=== PATIENT | male | born 1975 ===

== ENCOUNTER 2022-05-06 01:00 | Emergency (ER) | payer SELFPAY ==
--- NOTE | 2022-05-06 04:19 | Emergency Department Report ---
ED Psych HPI - General Chief Complaint: Psych Stated Complaint: MENTAL HEALTH Time Seen by Provider: 05/06/22 04:11 Source: police Mode of arrival: Ambulatory - History of Present Illness Initial Comments: Patient is a 47-year-old male presenting to ED with complaint of suicidal and homicidal ideation. - Related Data Home Medications Medication Instructions Recorded Confirmed Last Taken OLANzapine [ZyPREXA] 10 mg PO QPM 05/06/22 05/06/22 Unknown Omeprazole Magnesium [PriLOSEC Otc] 20 mg PO QDAY 05/06/22 05/06/22 Unknown Venlafaxine [Effexor] 75 mg PO QAM 05/06/22 05/06/22 Unknown lisinopriL [Lisinopril] 20 mg PO QDAY 05/06/22 05/06/22 Unknown Allergies Allergy/AdvReac Type Severity Reaction Status Date / Time No Known Allergies Allergy Unverified 05/06/22 01:19 ED Review of Systems ROS: Stated complaint: MENTAL HEALTH Other details as noted in HPI Constitutional: denies: chills, fever Respiratory: denies: cough, shortness of breath, wheezing Cardiovascular: denies: chest pain, palpitations Gastrointestinal: denies: abdominal pain, nausea, diarrhea Musculoskeletal: denies: back pain, joint swelling, arthralgia Skin: denies: rash, lesions Neurological: denies: headache, weakness, paresthesias Psychiatric: homicidal thoughts, suicidal thoughts. denies: auditory hallucinations, visual hallucinations ED Past Medical Hx - Medications Home Medications: Home Medications Medication Instructions Recorded Confirmed Last Taken Type OLANzapine [ZyPREXA] 10 mg PO QPM 05/06/22 05/06/22 Unknown History Omeprazole Magnesium [PriLOSEC Otc] 20 mg PO QDAY 05/06/22 05/06/22 Unknown History Venlafaxine [Effexor] 75 mg PO QAM 05/06/22 05/06/22 Unknown History lisinopriL [Lisinopril] 20 mg PO QDAY 05/06/22 05/06/22 Unknown History ED Physical Exam - General Limitations: No Limitations General appearance: alert, in no apparent distress - Head Head exam: Present: atraumatic, normocephalic - Respiratory Respiratory exam: Present: normal lung sounds bilaterally. Absent: respiratory distress - Cardiovascular Cardiovascular Exam: Present: regular rate, normal rhythm, normal heart sounds - GI/Abdominal GI/Abdominal exam: Present: soft. Absent: distended, tenderness - Rectal Rectal exam: Present: deferred - Neurological Exam Neurological exam: Present: alert, oriented X3 - Psychiatric Psychiatric exam: Present: homicidal ideation, suicidal ideation - Skin Skin exam: Present: warm, dry, intact, normal color ED Course Vital Signs 05/06/22 05/06/22 05/06/22 01:12 01:22 01:39 Temperature 98.4 F Pulse Rate 121 H Respiratory 16 Rate Blood Pressure 86/61 147/104 [Right] O2 Sat by Pulse 100 96 Oximetry 05/06/22 05:18 Temperature 97.8 F Pulse Rate 82 Respiratory 18 Rate Blood Pressure 126/87 [Right] O2 Sat by Pulse 99 Oximetry Critical care attestation.: If time is entered above; I have spent that time in minutes in the direct care of this critically ill patient, excluding procedure time. ED Disposition Condition: Stable
[2022-05-06 05:50] LABS: Basophils # (Auto) 0.1 K/mm3 (0.0-0.1); Basophils % (Auto) 0.8 % (0.0-1.8); Eosinophils # (Auto) 0.1 K/mm3 (0.0-0.4); Eosinophils % (Auto) 1.5 % (0.0-4.3); Hematocrit 41.5 % (35.5-45.6); Hemoglobin 13.3 gm/dl (11.8-15.2); Lymphocytes # (Auto) 3.2 K/mm3 (1.2-5.4); Lymphocytes % (Auto) 34.9 % (13.4-35.0); Mean Corpuscular HGB Conc 32 % (32-34); Mean Corpuscular Volume 93 fl (84-94); Monocytes # (Auto) 0.7 K/mm3 (0.0-0.8); Monocytes % (Auto) 7.3 % (0.0-7.3); Platelet Count 238 K/mm3 (140-440); Red Blood Count 4.48 M/mm3 (3.65-5.03); Red Cell Distribution Width 13.6 % (13.2-15.2)
[2022-05-06 06:06] LABS: Alanine Aminotransferase 32 units/L (7-56); Albumin 4.4 g/dL (3.9-5); BUN/Creatinine Ratio 9; Blood Urea Nitrogen 7 mg/dL (9-20); Calcium 8.9 mg/dL (8.4-10.2); Hemolysis Index 14
--- NOTE | 2022-05-06 09:53 | Consultation ---
History of Present Illness - Reason for Consult Consult date: 05/06/22 Reason for consult: agitation, SI/HI - History of Present Psychiatric Illness HPI: Patient is a 47-year-old male presenting to ED with complaint of suicidal and homicidal ideation. The patient was seen today. He is in seclusion. He is agitated and visibly upset. He is talking loudly. He is uncooperative. He is delusional. He says "lacy gone get me out of here now." The patient says "I need to talk to my erisa attorney to see why lacy got me here in these handcuffs." I inform the patient that he's not in handcuffs. He removes his hands from behind his back and looks at them. He then places them back behind him and continues to think that he's in handcuffs. The patient says "I'm not talking to no one so you can leave." REVIEW OF SYSTEMS Unable to assess MENTAL STATUS Unable to assess Diagnoses Mood Disorder, Unspecified Treatment Plan 1013 Risperidone 0.5mg po BID Depakote DR 125mg po BID Trazodone 50mg po qhs Medical: per primary Disposition: recommend acute psychiatric treatment Will follow. Thanks Case staffed with Dr. Adkins Medications and Allergies Allergies Allergy/AdvReac Type Severity Reaction Status Date / Time No Known Allergies Allergy Unverified 05/06/22 01:19 Home Medications Medication Instructions Recorded Confirmed Last Taken Type OLANzapine [ZyPREXA] 10 mg PO QPM 05/06/22 05/06/22 Unknown History Omeprazole Magnesium [PriLOSEC Otc] 20 mg PO QDAY 05/06/22 05/06/22 Unknown History Venlafaxine [Effexor] 75 mg PO QAM 05/06/22 05/06/22 Unknown History lisinopriL [Lisinopril] 20 mg PO QDAY 05/06/22 05/06/22 Unknown History Mental Status Exam - Vital signs Last Vital Signs Temp 97.8 F 05/06/22 05:18 Pulse 82 05/06/22 05:18 Resp 18 05/06/22 05:18 BP 126/87 05/06/22 05:18 Pulse Ox 99 05/06/22 05:18 Results Result Diagrams: 05/06/22 05:18 05/06/22 05:18 Abnormal lab results 05/06/22 05/06/22 05/06/22 Range/Units 05:18 05:18 05:18 BUN 7 L (9-20) mg/dL AST 49 H (5-40) units/L Salicylates < 0.3 L (2.8-20.0) mg/dL Acetaminophen 5.0 L (10.0-30.0) ug/mL Plasma/Serum Alcohol (0-0.07) % 05/06/22 Range/Units 05:18 BUN (9-20) mg/dL AST (5-40) units/L Salicylates (2.8-20.0) mg/dL Acetaminophen (10.0-30.0) ug/mL Plasma/Serum Alcohol 0.18 H (0-0.07) % All other labs normal.
[2022-05-06] MEDS: DIVALPROEX DR 125 MG TAB PO SCH ×2 (11:28→21:38)
[2022-05-06] MEDS: risperiDONE 0.25 MG TAB PO SCH ×2 (11:28→21:38)
[2022-05-06 12:03] LABS: Amphetamine Screen,Urine PRESUMPTIVE NEGATIVE; Benzodiazepines Screen,Urine PRESUMPTIVE NEGATIVE; Cannabinoid Screen,Urine PRESUMPTIVE NEGATIVE; Cocaine Screen,Urine PRESUMPTIVE NEGATIVE; Methadone Screen,Urine PRESUMPTIVE NEGATIVE; Opiate Screen,Urine PRESUMPTIVE NEGATIVE
[2022-05-06] MEDS ORDERED: MIDAZOLAM 2 MG/2 ML INJ IM PRN (12:28)
[2022-05-06] MEDS ORDERED: HALOPERIDOL LACTATE 5 MG/1 ML INJ IM PRN (12:28)
[2022-05-06] MEDS ORDERED: DEXTROSE 50% IN WATER (25GM) 50 ML SYRINGE IV PRN (12:29)
--- NOTE | 2022-05-06 12:31 | Event Note ---
Date: 05/06/22 The patient was evaluated in the emergency department for symptoms described in the history of present illness. He/she was evaluated in the context of the global COVID-19 pandemic, which necessitated consideration that the patient might be at risk for infection with the virus that causes COVID-19. Institutional protocols and algorithms that pertain to the evaluation of patients at risk for COVID-19 are in a state of rapid change based on information released by regulatory bodies including the CDC and federal and state organizations. These policies and algorithms were followed during the patient's care in the emergency department. Please note that these policies, procedures and recommendations changed on a rapid basis. Laboratory studies, vital signs, nursing documentation, ER documentation, and psychiatric documentation are reviewed and appreciated. Nursing team reports no acute events this morning or concerns. The patient is awake and ambulating and laying on his side and not in any acute distress The patient was deemed medically suitable for psychiatric disposition and placement during his initial ER evaluation. The patient continues to remain medically suitable for psychiatric placement and disposition. He is currently pending psychiatric placement. The emergency room will follow up on urinalysis and urine drug screen. Please note that these test are not required to exclude an emergent medical condition, and absence of results does not preclude psychiatric disposition Vital Signs 05/06/22 05/06/22 05/06/22 01:12 01:22 01:39 Temperature 98.4 F Pulse Rate 121 H Respiratory 16 Rate Blood Pressure 86/61 147/104 [Right] O2 Sat by Pulse 100 96 Oximetry 05/06/22 05:18 Temperature 97.8 F Pulse Rate 82 Respiratory 18 Rate Blood Pressure 126/87 [Right] O2 Sat by Pulse 99 Oximetry Lab Results 05/06/22 05/06/22 05/06/22 Range/Units 05:18 05:18 05:18 WBC 9.1 (4.5-11.0) K/mm3 RBC 4.48 (3.65-5.03) M/mm3 Hgb 13.3 (11.8-15.2) gm/dl Hct 41.5 (35.5-45.6) % MCV 93 (84-94) fl MCH 30 (28-32) pg MCHC 32 (32-34) % RDW 13.6 (13.2-15.2) % Plt Count 238 (140-440) K/mm3 Lymph % (Auto) 34.9 (13.4-35.0) % [place] % (Auto) 7.3 (0.0-7.3) % Eos % (Auto) 1.5 (0.0-4.3) % Baso % (Auto) 0.8 (0.0-1.8) % Lymph # (Auto) 3.2 (1.2-5.4) K/mm3 [place] # (Auto) 0.7 (0.0-0.8) K/mm3 Eos # (Auto) 0.1 (0.0-0.4) K/mm3 Baso # (Auto) 0.1 (0.0-0.1) K/mm3 Seg Neutrophils % 55.5 (40.0-70.0) % Seg Neutrophils # 5.1 (1.8-7.7) K/mm3 Sodium 141 (137-145) mmol/L Potassium 4.4 (3.6-5.0) mmol/L Chloride 104.1 (98-107) mmol/L Carbon Dioxide 26 (22-30) mmol/L Anion Gap 15 mmol/L BUN 7 L (9-20) mg/dL Creatinine 0.8 (0.8-1.3) mg/dL Estimated GFR > 60 ml/min BUN/Creatinine Ratio 9 % Glucose 82 (75-100) mg/dL Calcium 8.9 (8.4-10.2) mg/dL Total Bilirubin 0.20 (0.1-1.2) mg/dL AST 49 H (5-40) units/L ALT 32 (7-56) units/L Alkaline Phosphatase 127 (35-129) units/L Total Protein 7.7 (6.3-8.2) g/dL Albumin 4.4 (3.9-5) g/dL Albumin/Globulin Ratio 1.3 % TSH 0.835 (0.270-4.200) mlU/mL Salicylates (2.8-20.0) mg/dL Urine Opiates Screen Urine Methadone Screen Acetaminophen (10.0-30.0) ug/mL Ur Barbiturates Screen Ur Phencyclidine Scrn Ur Amphetamines Screen U Benzodiazepines Scrn Urine Cocaine Screen U Marijuana (THC) Screen Drugs of Abuse Note Plasma/Serum Alcohol (0-0.07) % SARS-CoV-2 (PCR) (Negative) 05/06/22 05/06/22 05/06/22 Range/Units 05:18 05:18 05:18 WBC (4.5-11.0) K/mm3 RBC (3.65-5.03) M/mm3 Hgb (11.8-15.2) gm/dl Hct (35.5-45.6) % MCV (84-94) fl MCH (28-32) pg MCHC (32-34) % RDW (13.2-15.2) % Plt Count (140-440) K/mm3 Lymph % (Auto) (13.4-35.0) % [place] % (Auto) (0.0-7.3) % Eos % (Auto) (0.0-4.3) % Baso % (Auto) (0.0-1.8) % Lymph # (Auto) (1.2-5.4) K/mm3 [place] # (Auto) (0.0-0.8) K/mm3 Eos # (Auto) (0.0-0.4) K/mm3 Baso # (Auto) (0.0-0.1) K/mm3 Seg Neutrophils % (40.0-70.0) % Seg Neutrophils # (1.8-7.7) K/mm3 Sodium (137-145) mmol/L Potassium (3.6-5.0) mmol/L Chloride (98-107) mmol/L Carbon Dioxide (22-30) mmol/L Anion Gap mmol/L BUN (9-20) mg/dL Creatinine (0.8-1.3) mg/dL Estimated GFR ml/min BUN/Creatinine Ratio % Glucose (75-100) mg/dL Calcium (8.4-10.2) mg/dL Total Bilirubin (0.1-1.2) mg/dL AST (5-40) units/L ALT (7-56) units/L Alkaline Phosphatase (35-129) units/L Total Protein (6.3-8.2) g/dL Albumin (3.9-5) g/dL Albumin/Globulin Ratio % TSH (0.270-4.200) mlU/mL Salicylates < 0.3 L (2.8-20.0) mg/dL Urine Opiates Screen Urine Methadone Screen Acetaminophen 5.0 L (10.0-30.0) ug/mL Ur Barbiturates Screen Ur Phencyclidine Scrn Ur Amphetamines Screen U Benzodiazepines Scrn Urine Cocaine Screen U Marijuana (THC) Screen Drugs of Abuse Note Plasma/Serum Alcohol 0.18 H (0-0.07) % SARS-CoV-2 (PCR) (Negative) 05/06/22 05/06/22 Range/Units 11:21 11:30 WBC (4.5-11.0) K/mm3 RBC (3.65-5.03) M/mm3 Hgb (11.8-15.2) gm/dl Hct (35.5-45.6) % MCV (84-94) fl MCH (28-32) pg MCHC (32-34) % RDW (13.2-15.2) % Plt Count (140-440) K/mm3 Lymph % (Auto) (13.4-35.0) % [place] % (Auto) (0.0-7.3) % Eos % (Auto) (0.0-4.3) % Baso % (Auto) (0.0-1.8) % Lymph # (Auto) (1.2-5.4) K/mm3 [place] # (Auto) (0.0-0.8) K/mm3 Eos # (Auto) (0.0-0.4) K/mm3 Baso # (Auto) (0.0-0.1) K/mm3 Seg Neutrophils % (40.0-70.0) % Seg Neutrophils # (1.8-7.7) K/mm3 Sodium (137-145) mmol/L Potassium (3.6-5.0) mmol/L Chloride (98-107) mmol/L Carbon Dioxide (22-30) mmol/L Anion Gap mmol/L BUN (9-20) mg/dL Creatinine (0.8-1.3) mg/dL Estimated GFR ml/min BUN/Creatinine Ratio % Glucose (75-100) mg/dL Calcium (8.4-10.2) mg/dL Total Bilirubin (0.1-1.2) mg/dL AST (5-40) units/L ALT (7-56) units/L Alkaline Phosphatase (35-129) units/L Total Protein (6.3-8.2) g/dL Albumin (3.9-5) g/dL Albumin/Globulin Ratio % TSH (0.270-4.200) mlU/mL Salicylates (2.8-20.0) mg/dL Urine Opiates Screen Presumptive negative Urine Methadone Screen Presumptive negative Acetaminophen (10.0-30.0) ug/mL Ur Barbiturates Screen Presumptive negative Ur Phencyclidine Scrn Presumptive negative Ur Amphetamines Screen Presumptive negative U Benzodiazepines Scrn Presumptive negative Urine Cocaine Screen Presumptive negative U Marijuana (THC) Screen Presumptive negative Drugs of Abuse Note Disclamer Plasma/Serum Alcohol (0-0.07) % SARS-CoV-2 (PCR) Negative (Negative)
[2022-05-06 14:34] LABS: Bacteria,Urine 1+ /HPF (Negative); Hyaline Casts,Urine 1 /LPF; Mucus,Urine 1+ /HPF
[2022-05-06] MEDS ORDERED: NON-FORMULARY EACH (Omeprazole Magnesium [Prilosec Otc] 20 MG Tablet.Dr) PO SCH (17:15)
[2022-05-06] MEDS: PANTOPRAZOLE 20 MG TAB PO SCH (17:34)
[2022-05-06 17:47] LABS: Amorphous Crystals,Urine 3+
[2022-05-06 17:58] LABS: Bilirubin,Urine 2+ (Negative); Blood,Urine Negative (Negative); Color,Urine Yellow (Yellow); Ictotest,Urine Negative (Negative)
[2022-05-06] MEDS ORDERED: traZODone 50 MG TAB PO SCH (22:00)
--- NOTE | 2022-05-07 09:36 | Progress Note ---
Subjective - Reason for Consult Consult date: 05/07/22 Reason for consult: psychosis - Chief Complaint Chief complaint: The patient was seen today. He presents as much better today. The patient is lucid, pleasant and conversational. He is talking to another patient when I'm walking up about his future. He verbalizes feeling a lot better. The patient says he just got out of [facility] after serving 10 years. He says "I don't want to go back and I'm gone do what I said I was gone do." The patient says "I'm gone find me a sponsor, a miner and get in holiness." The patient denies SI/HI, he says "not at all." He also denies hallucinations of any kind. Discussed with the patient the benefit and importance of continuing his medication and outpatient treatment. He agrees with plan. REVIEW OF SYSTEMS Constitutional: Negative for weight loss ENT: Negative for stridor Respiratory: Negative for cough or hemoptysis All other systems reviewed and are negative MENTAL STATUS EXAMINATION General Appearance and Behavior: Age appropriate, good hygiene, wearing appropriate clothes, good eye contact, calm, cooperative, pleasant Cooperation: Participating/engaged Psychomotor Behavior: Psychomotor normal Mood: good, well Affect and affective range: congruent with stated mood, Euthymic Thought Process: Goal directed Thought Content: None Speech: normal tone and pace Suicidal Ideation: Denies Homicidal Ideation: Denies Hallucinations: Denies Delusions: none elicited Impulse Control: Limited Insight and Judgment: Good insight and judgment Memory: Good Attention: Attentive Orientation: Alert, oriented Assessment and Plan Mood Disorder, Unspecified Treatment d/c 1013 Risperidone 0.5mg po BID Trazodone 50mg po qhs Depakote DR 125mg po BID Sitter: Per primary Medical: Per primary Disposition: Do not recommend acute psychiatric inpatient treatment. The patient understands that if SI/HI or any fear of endangerment arise he is to seek immediate assistance The patient to follow up with outpatient psych in 7 to 14 days upon discharge Will sign off. Thank you for this consult Case staffed with Dr. Adkins Mental Status Exam - Vital signs Last Vital Signs Temp 99.2 F 05/06/22 20:06 Pulse 108 H 05/06/22 20:06 Resp 20 05/06/22 20:06 BP 130/92 05/06/22 20:06 Pulse Ox 99 05/06/22 21:16
[2022-05-07] MEDS: DIVALPROEX DR 125 MG TAB PO SCH (09:49)
[2022-05-07] MEDS: PANTOPRAZOLE 20 MG TAB PO SCH (09:50)
[2022-05-07] MEDS: risperiDONE 0.25 MG TAB PO SCH (09:50)
[2022-05-07] MEDS ORDERED: MULTIVITAMINS ,THERAPEUTIC TAB PO SCH (10:00)
[2022-05-07] MEDS ORDERED: LISINOPRIL 20 MG TAB PO SCH (10:00)
[2022-05-07 10:51] VITALS: BP 139/91
== END 2022-05-07 12:55 | disposition home or self-care (01) ==
LOC: ED 01:00
DX: R45.851 Suicidal ideations (principal); R45.850 Homicidal ideations; Z20.822 Contact with and (suspected) exposure to COVID-19; Z79.899 Other long term (current) drug therapy
CPT/HCPCS: 36415; 80053; 80307; 81001; 84443; 85025; 99284; U0003; 80320; G0480